=== PATIENT | male | born 1990 | race Two or more races ===

== ENCOUNTER 2025-01-30 11:17 | Emergency (ER) | payer MEDICAID ==
[~2025-01-30] VITALS: Ht 177.8 cm; Wt 80.6 kg
[2025-01-30 11:36] VITALS: TEMP 97.7
[2025-01-30 12:08] LABS: LEUKOCYTE ESTERASE ,URINE NEGATIVE (Neg); NITRITES, URINE NEGATIVE (Neg); OCCULT BLOOD,URINE NEGATIVE (Neg)
[2025-01-30 12:11] LABS: UA COLLECTION TYPE CLN CATCH MIDSTREAM
[2025-01-30 12:19] LABS: AMORPHOUS PHOSPHATES 3+; MUCUS STRANDS NONE SEEN /LPF (Neg); SQUAMOUS EPITHELIAL CELL,UR NONE SEEN /LPF (FEW)
[2025-01-30 12:22] LABS: MEAN PLATELET VOLUME 8.1 FL (7.4-10.4); RED CELL DISTRIBUTION WIDTH 14.3 % (11.5-14.5)
[2025-01-30 12:37] LABS: CREATININE 1.02 MG/DL (0.60-1.10); TOTAL CARBON DIOXIDE 31.2 MMOL/L (24-32); eCRCL 106 ML/MIN; eGFR 84 ML/MIN
--- NOTE | 2025-01-30 13:45 | Physician Documentation ---
History of Present Illness General Chief Complaint: Vomiting Stated Complaint: PORT ISSUES Time Seen by MD: 13:36 History of Present Illness Initial Comments Immuno incompetent 34-year-old male presents to ED with nasal congestion and mild malaise. Receiving chemotherapy for liver and colon cancer. Requesting that his port be flush. In his words he feels that he often gets these symptoms when his port needs to be flush. He has been followed by Oncology. Denies fever, nausea vomiting, chest pain or shortness of breath. Denies known ill contacts and denies recent travels or hospitalizations. Medication Reconciliation Allergies: Coded Allergies: haloperidol (Verified Allergy, Unknown, 01/30/25) morphine (Verified Allergy, Unknown, 01/30/25) only liquid form Physical Exam Physical Exam Vital Signs: Temperature: 97.7, Source: Temporal, Heart Rate: 86, Respiratory Rate: 16, BP: 121/77, Pulse Oximetry: 97, Weight: 80.600 Oxygen Flow Rate: 0 Progress Results/Orders Results/Orders Orders - RYLIE FLORES PAC Covid19 Binax Poc Result Entry (01/30/25 13:42) Completed Orders - RYLIE FLORES PAC Influenza Type A&B Rapid Test (01/30/25 13:39) Rsv Antigen Ages 0-5 & 60+ (01/30/25 13:51) Medications Received in ER Medications (Trade) Dose Ordered Sig/Reina Route PRN Reason Start Time Stop Time Status Last Admin Dose Admin (heparin, porcine 1,000 UNIT/ML 1ml vial) 2,500 units ONCE ONCE ICATH 01/30/25 13:20 01/30/25 13:21 DC 01/30/25 13:35 2,500 UNITS Vital Signs 01/30/25 01/30/25 01/30/25 11:36 13:50 13:53 Temp 97.7 Pulse 86 69 Resp 16 16 B/P (MAP) 121/77 140/84 Pulse Ox 97 99 O2 Flow Rate 0 Laboratory Tests Test 01/30/25 11:41 01/30/25 12:11 01/30/25 13:39 01/30/25 13:51 Urine Specimen Description Cln catch midstream Urine Color Yellow Urine Clarity Slightly cloudy Urine pH 8.5 Urine Specific [place] 1.015 Urine Protein Negative Urine Glucose (UA) Negative Urine Ketones Trace H Urine Occult Blood Negative Urine Nitrite Negative Urine Bilirubin Negative Urine Urobilinogen 0.2 Urine Leukocyte Esterase Negative Urine RBC None seen Urine WBC 0-4 Urine Squamous Epithelial Cells None seen Urine Amorphous Phosphates 3+ Urine Bacteria Few Urine Mucus None seen Urine Culture Indicated Not ind Volume Urine Centrifuged 10 ml Urine Comment White Blood Count 9.6 Red Blood Count 5.11 Hemoglobin 14.4 Hematocrit 43.0 Mean Corpuscular Volume 84.1 Mean Corpuscular Hemoglobin 28.1 Mean Corpuscular Hemoglobin Concent 33.4 Red Cell Distribution Width 14.3 Platelet Count 364 Mean Platelet Volume 8.1 Neutrophils (%) (Auto) 83.0 H Lymphocytes (%) (Auto) 11.1 L Monocytes (%) (Auto) 5.3 Eosinophils (%) (Auto) 0.2 Basophils (%) (Auto) 0.4 Neutrophils # (Auto) 8.0 H Lymphocytes # (Auto) 1.1 Monocytes # (Auto) 0.5 Eosinophils # (Auto) 0.0 Basophils # (Auto) 0.0 CBC Comment Sodium Level 139 Potassium Level 4.3 Chloride Level 104 Carbon Dioxide Level 31.2 Anion Gap 4 L Blood Urea Nitrogen 10 Creatinine 1.02 Estimated GFR/1.73 m2 84 BUN/Creatinine Ratio 9.8 L Glucose Level 104 Calcium Level 9.3 Total Bilirubin 0.5 Aspartate Amino Transf (AST/SGOT) 21 Alanine Aminotransferase (ALT/SGPT) 19 Alkaline Phosphatase 70 Total Protein 7.4 Albumin 4.1 Globulin 3.3 Albumin/Globulin Ratio 1.2 Lipase 18 Chemistry Comments Influenza Type A Antigen Negative Influenza Type B Antigen Negative SARS-CoV-2 Antigen (Rapid) Negative Respiratory Syncytial Virus Antigen Negative Medical Decision Making Additional information obtaine: family Findings At patient's request flushed his port which has been reassuring to him. Screening labs for COVID, Influenza a and B along with RSV negative. Patient to follow up with his primary care physician. Differential Diagnosis Differentials include but not limited to, early Viral syndrome, RSV, influenza a, B and COVID. Do not suspect neutropenic fever, pneumonia or other serious b acterial illness such as meningitis, pericarditis myocarditis or infected port. Labs reassuring for no leukocytosis or GEMMA. Departure Disposition: 01 HOME / SELF CARE / HOMELESS Impression: Primary Impression: Viral syndrome Condition: Stable Additional Instructions: Today while in the emergency department you had your PORT flushed at your request. Additionally you have had screening for COVID, Influenza A and B along with RSV. In the emergency department we will follow up with the use of either those are positive. Make connection with your oncologist and primary care physician for repeat examination 2-3 days. Referrals: NO PRIMARY CARE PROVIDER (PCP) Education Educated: Patient Educated regarding: diagnosis, treatment, prognosis, need for follow up Signature Scribe Signature: . Attestation: . RYLIE FLORES PAC Jan 30, 2025 13:45
[2025-01-30 13:50] VITALS: BP 140/84; PULSE 69; RESP 16; O2SAT 99
[2025-01-30 15:05] LABS: INFLUENZA TYPE A ANTIGEN RAPID NEGATIVE (Negative)
[2025-01-30 15:06] LABS: INFLUENZA TYPE B ANTIGEN RAPID NEGATIVE (Negative)
== END 2025-01-30 15:25 | disposition home or self-care (01) ==
LOC: ER 11:18
DX: B34.9 Viral infection, unspecified (principal); Z88.5 Allergy status to narcotic agent; Z88.8 Allergy status to other drugs, medicaments and biological substances; Z20.822 Contact with and (suspected) exposure to COVID-19
CPT/HCPCS: 36415; 80053; 81001; 83690; 85025; 87804; 87811; 99283; J1644